=== PATIENT | male | born 2000 | race Caucasian/White ===

== ENCOUNTER 2019-01-19 12:12 | Emergency (ER) | payer OTHER ==
[~2019-01-19] VITALS: Ht 177.8 cm; Wt 77.2 kg
[~2019-01-19 12:12] MED LIST: IBUP-1542 PO
[2019-01-19 12:18] VITALS: BP 142/65; PULSE 61; RESP 18; Ht 177.8 cm; Wt 77.2 kg
[2019-01-19] MEDS ORDERED: KETOROLAC 30 MG INJ IM STA (14:01)
== END 2019-01-19 14:29 | disposition home or self-care (01) ==
LOC: FTE 12:12
DX: M54.5 Low back pain (principal)
CPT/HCPCS: 96372; J1885; Z7502